=== PATIENT | male | born 1990 | race African-American/Black ===

== ENCOUNTER 2022-05-28 04:10 | Emergency (ER) | payer MEDICAID, MEDICARE ==
[~2022-05-28] VITALS: Ht 185.4 cm; Wt 62.0 kg
[2022-05-28 04:30] VITALS: BP 127/90
[2022-05-28] MEDS ORDERED: LIDOCAINE HCL 1% 10 MG/ML 10ML VIAL IJ NR (06:30)
[2022-05-28] MEDS ORDERED: KETOROLAC 60MG/2ML VIAL IM NR (06:30)
[2022-05-28] MEDS ORDERED: BACITRACIN ZINC OINT UDPKT TOP NR (06:30)
[2022-05-28] MEDS ORDERED: CYCLOBENZAPRINE 10MG TABLET PO NR (06:30)
[2022-05-28] MEDS ORDERED: TRANEXAMIC ACID 1,000 MG/10 ML IV ONE (10:45)
[2022-05-28] MEDS ORDERED: LIDOCAINE HCL/EPINEPHRINE 1%-EPI 1:100,000 20 ML VIAL INFIL ONE (10:45)
[2022-05-28] MEDS ORDERED: OXYMETAZOLINE HCL NASAL SPRAY 15ML BOTHNSTRLS SCH (21:00)
== END 2022-05-28 12:32 | disposition home or self-care (01) ==
LOC: ER 04:10
DX: S01.01XA Laceration without foreign body of scalp, initial encounter (principal); V43.52XA Car driver injured in collision with other type car in traffic accident, initial encounter; Y93.89 Activity, other specified; Y92.488 Other paved roadways as the place of occurrence of the external cause
CPT/HCPCS: 73080; 73130; 73562; 96372; 96374; 99284; J1885; J3490; Z7610